=== PATIENT | female | born 1975 | race Caucasian/White ===

== ENCOUNTER → 2018-07-12 08:54 | Outpatient (CLI) | payer MEDICAID | END | disposition home or self-care (01) | LOC: D.US 08:54 → D.NM 10:30 | PROVIDERS: ATTEND Internal Medicine Gastroenterology | DX: R10.9 Unspecified abdominal pain (principal); R11.2 Nausea with vomiting, unspecified; R14.0 Abdominal distension (gaseous) ==

== ENCOUNTER → 2018-07-28 09:44 | Outpatient (CLI) | payer MEDICAID | END | disposition home or self-care (01) | LOC: D.RAD 09:44 | PROVIDERS: ATTEND Internal Medicine Gastroenterology | DX: R13.10 Dysphagia, unspecified (principal); R10.12 Left upper quadrant pain; R63.4 Abnormal weight loss; K31.84 Gastroparesis ==

== ENCOUNTER → 2018-08-10 07:37 | Outpatient (CLI) | payer MEDICAID ==
[2018-08-10 10:15] LABS: AMYLASE - SERUM 37 U/L (25-115); LIPASE 295 U/L (73-393)
== END | disposition home or self-care (01) ==
LOC: D.NM 07:37
PROVIDERS: ATTEND Internal Medicine Gastroenterology
DX: R13.10 Dysphagia, unspecified (principal); R10.12 Left upper quadrant pain; R63.4 Abnormal weight loss; K31.84 Gastroparesis

== ENCOUNTER → 2018-09-22 12:18 | Outpatient (CLI) | payer MEDICAID ==
[2018-09-23 11:10] LABS: ANA REFLEX - DIRECT Negative (Negative)
== END | disposition home or self-care (01) ==
LOC: D.LAB 12:18
PROVIDERS: ATTEND Internal Medicine Gastroenterology
DX: R10.9 Unspecified abdominal pain (principal); R11.2 Nausea with vomiting, unspecified; R63.4 Abnormal weight loss; R19.7 Diarrhea, unspecified